=== PATIENT | female | born 1990 | race African-American/Black ===

== ENCOUNTER 2017-05-13 11:31 | Inpatient (IN) ==
[2017-05-13 12:24] LABS: Basophils % 0.4 % (0.0-0.8); Eosinophils # 0.1 10*3/uL (0.0-0.87); Hematocrit 31.4 VOL% (35.7-47.0); Hemoglobin 10.4 GM/DL (12.0-16.0); Immature Granulocytes % 0.5 %; Immature Granulocytes Absolute 0.04 #; Lymphocytes # 1.6 10*3/uL (1.4-4.0); Lymphocytes % 19.7 % (21.3-54.2); Mean Corpuscular HGB Conc 33.1 GM/DL (32-36); Mean Corpuscular Hemoglobin 28 PG (27-34); Mean Corpuscular Volume 85.3 FL (87-102); Mean Platelet Volume 11.1 FL (9.6-12.0); Monocytes # 0.6 10*3/uL (0.11-0.8); Monocytes % 7.8 % (1.7-12.7); Neutrophils # 5.7 10*3/uL (1.4-7.4); Neutrophils % 70.6 % (38.7-73.9); Platelet Count 246 T/CUMM (130-400); Red Blood Count 3.68 MC/CUMM (3.8-5.5); Red Cell Distribution Width 13.9 % (9.3-17.3); White Blood Count 8.1 T/CUMM (4-12)
[2017-05-13 12:52] LABS: Alanine Aminotransferase 18 U/L (13-56); Albumin 2.9 G/DL (3.4-5.0); Alkaline Phosphatase 185 U/L (45-117); Aspartate Amino Transferase 18 U/L (0-37); Bilirubin,Total < 0.39 MG/DL (0.2-1.0); Blood Urea Nitrogen 7 MG/DL (7-18); Calcium 8.9 MG/DL (8.5-10.1); Glucose 77 MG/DL (74-106); Osmolality,Calculated 269.8 MOS/KG (273-304); Potassium 3.4 MMOL/L (3.5-5.1); Sodium 137 MMOL/L (136-145); Total Protein 6.6 G/DL (6.4-8.3); Uric Acid 4.1 MG/DL (2.6-6.0)
--- NOTE | 2017-05-13 14:06 | Ultrasound Report ---
US OB biophys profile Indication: . Decreased movement. Biophysical profile ultrasound: Single fetus is vertex. Right lateral placenta without previa. MICHELLE 112 mm. heart rate 136 BPM. breathing, gross body movements and tone within normal limits. Impression: 06/25 biophysical profile score. PROCEDURE INTERPRETED AT [facility] DEPARTMENT OF RADIOLOGY Final Report Signed by: Adam Devine M.D.
[2017-05-13] MEDS ORDERED: DINOPROSTONE 10 MG VAG.INSERT VAG ONE ×2 (14:50→14:58)
[2017-05-13] MEDS ORDERED: ONDANSETRON 4 MG/2 ML VIAL IV PRN (14:50)
[2017-05-13] MEDS ORDERED: LACTATED RINGERS 1,000 ML IV SCH ×2 (15:00→18:00)
[2017-05-13] MEDS ORDERED: BUTORPHANOL 2 MG/ML VIAL IV PRN (15:49)
[2017-05-13] MEDS ORDERED: AMPICILLIN INJ 2,000 MG in SODIUM CHLORIDE 0.9% 100 ML IV SCH (17:00)
[2017-05-13] MEDS ORDERED: diphenhydrAMINE 50 MG/1 ML VIAL IV PRN ×2 (17:37)
[2017-05-13] MEDS ORDERED: LACTATED RINGERS 1,000 ML IV ONE (17:37)
[2017-05-13] MEDS ORDERED: LACTATED RINGERS 500 ML IV ONE (17:37)
[2017-05-13] MEDS ORDERED: LACTATED RINGERS 250 ML IV PRN (17:37)
[2017-05-13] MEDS ORDERED: fentaNYL 2 MCG/ROPIV 0.2% EPID 150 ML EPIDURAL SCH (17:37)
[2017-05-13] MEDS ORDERED: ePHEDrine 50 MG/ML AMP IV PRN (17:37)
[2017-05-13] MEDS ORDERED: hydrOXYzine HCL 25 MG/1 ML VIAL IM PRN (17:37)
[2017-05-13] MEDS ORDERED: PROMETHAZINE 25 MG/1 ML VIAL IM ONE (17:37)
[2017-05-13] MEDS ORDERED: ONDANSETRON 4 MG/2 ML VIAL IV ONE (17:37)
[2017-05-13] MEDS ORDERED: CITRIC ACID/SODIUM CITRATE 30 ML UDCUP ONE (17:49)
[2017-05-13] MEDS ORDERED: FAMOTIDINE 20 MG/2 ML VIAL IV ONE (17:49)
[2017-05-13] MEDS ORDERED: CITRIC ACID/SODIUM CITRATE 30 ML UDCUP PO ONE (17:49)
[2017-05-13] MEDS ORDERED: miSOPROStol 200 MCG TABLET ONE (18:54)
[2017-05-13] MEDS ORDERED: OXYTOCIN/LR 20 UNIT/1,000 ML BAG IV ONE ×2 (18:54→19:33)
[2017-05-13] MEDS ORDERED: LIDOCAINE 1% 50 ML VIAL ONE (18:54)
[2017-05-13] MEDS ORDERED: METHYLERGONOVINE 0.2 MG/1 ML AMP ONE (18:55)
[2017-05-13] MEDS ORDERED: CARBOPROST TROMETHAMINE 250 MCG/ML AMP IM ONE (18:55)
[2017-05-13] MEDS ORDERED: TERBUTALINE 1 MG/1 ML VIAL SUBCUT ONE ×2 (18:57)
[2017-05-13 19:34] LABS: Cord Arterial Blood HCO3 22.6 MMOL/L
[2017-05-13 19:36] LABS: Cord Venous Blood HCO3 21.8 MMOL/L; Cord Venous Blood PCO2 52.6 MMHG; Cord Venous Blood PO2 14.8 MMHG
[2017-05-13] MEDS ORDERED: IBUPROFEN 800 MG TABLET PO PRN ×2 (20:36→21:53)
[2017-05-13] MEDS ORDERED: LABETALOL 100 MG TABLET PO SCH (21:00)
[2017-05-13] MEDS ORDERED: METHYLDOPA 250 MG TABLET PO SCH (21:00)
--- NOTE | 2017-05-13 21:29 | OB/GYN History & Physical ---
History of Present Illness Chief complaint: Headache and abdominal pain History of present illness: Ms. Oliveira is a 26 year old female @10:30 am 05/13/2017 HPI: 26 y/o @36 1/7 weeks per 16 week u/s. C/O H/A, reports taking BP medication this morning. Patient also c/o lower abdominal pain. Patient reports good movement, denies vaginal bleeding, no leakage of fluid. Care: HC with Prisca ACEVEDO starting at 5 weeks x 19 visits. Past OB Hx.: 1.) 2005 of viable female 5lbs 4 oz no complications, 2.) 2006 of viable male 5lbs 4oz no complications 3.)2010 of viable female 4lbs 11oz no complications, 4.)2013 of viable male 6lbs no complications, 5. ) 2015 of viable female 6lbs 13 oz no complications. 6. ) current . Past Medical Hx. HTN, Hx. of GDM, HSV II Past surgical Hx. Colpo 2012, Cryo 2012 Family Hx.: Mom- HTN, DM Father HTN, stroke Social Hx. Single AAF, FOB not involved, no tobacco, no alcohol, no illicit drug use Meds: PNVs, labetalol 200mg 1 po BID, Aldomet 250mg 1 po BID Allergies: NKDA labs: GBS positive 05/09/2017 PE: BP 160/98 P85 R20 T98.4 in office CVS- RRR, no murmur, Lungs CTA bilaterally Abdomen- Fundal height appropriate for dates abdomen nonrigid but extremely tender Extremities- + pedal pulses, negative merritt's sign bilaterally SVE 1.5cm/20-30%/-3 station [id number]'s Home Medications Medication Instructions Recorded Confirmed Type Labetalol Tab [Trandate Tab] 200 mg PO BID 04/25/16 05/13/17 History Methyldopa [Aldomet] 250 mg PO BID 04/25/16 05/13/17 History Docosahexanoic Acid [ Dha] 200 mg PO QAM 04/07/17 05/13/17 History Butalbital/Acet/Caff 50-325-40 1 tablet PO Q4H PRN 04/10/17 05/13/17 History [Fioricet 50-325-40 mg Tablet] Allergies Allergy/AdvReac Type Severity Reaction Status Date / Time No Known Allergies Allergy Verified 04/22/17 23:51 12 point system: reviewed and no additional remarkable complaints except as stated Medical,Surgical,& Family Hx - Medical History Cardio: History of: Hypertension Neurology: No history of: Vertigo Endocrine: History of: Diabetes Mellitus (NIDDM) Musculoskeletal: No history of: Amputation Reproductive: History of: Sexually Transmitted Disorders (HSV II) No history of: Ectopic , Complication - Surgical History Reproductive Surgeries: Patient denies;: Section, Gynecologic Surgery (Colposcopy 2012, Cryotherapy 2012) - Family History Family History: Reports;: Family Diabetes (AUNT), Family Hypertension (MOTHER) Denies;: Family Anesthesia Reaction, Family Cancer, Family Heart Disease, Family Psychiatric Problems, Family Stroke - Social History Smoking Status: Never smoker Frequency of Alcohol Use: None Type of Drug Use: None Marital Status: Single Lives With:: Children Functional capacity: independent ambulation 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 - Constitutional Vitals: Vital Signs Temp Pulse Resp BP Pulse Ox 05/13/17 21:15 97.1 F L 95 H 19 164/94 97 05/13/17 20:45 97 F L 89 19 160/84 98 05/13/17 20:15 97 F L 90 18 162/96 98 05/13/17 19:31 97.2 F L 100 H 19 148/89 General appearance: normal weight - Head Head exam: Present: normal inspection - Eye Eye exam: Present: EOMI Pupils: Present: TUSHAR - ENT ENT exam: Present: normal exam - Neck Neck exam: Present: normal inspection - Respiratory Respiratory exam: Present: clear to auscultation bilaterally - Breast Menstruation: amenorrhea (Secondary due to ) - Cardiovascular Cardiovascular exam: Present: regular rate and rhythm Peripheral pulses: 2+: posterior tibialis (L), posterior tibialis (R), dorsalis pedis (L), dorsalis pedis (R) - GI/Abdominal GI/Abdominal exam: Present: distended (Due to gravid uterus) - Extremities Exam Extremities exam: Present: normal inspection - Back Exam Back exam: Present: normal inspection - Neurological Exam Neurological exam: Present: alert, oriented X3 - Psychiatric Psychiatric exam: Present: normal affect, normal mood - Skin Skin exam: Present: normal color, warm Assessment and Plan (1) Pre-eclampsia superimposed on chronic hypertension Status: Acute Assessment and plan: Admit for cervical ripening with cervidil Later induction of labor with pitocin Continue oral HTN meds Continuous toco Pain management as desired Anticipate Current Visit: Yes Results - Labs CBC & BMP: 05/13/17 12:05 05/13/17 12:05
--- NOTE | 2017-05-13 21:41 | OB/GYN Progress Note ---
Assessment and Plan (1) Pre-eclampsia superimposed on chronic hypertension Status: Acute Assessment and plan: Continue oral HTN meds Current Visit: Yes (2) Vaginal delivery Status: Acute Assessment and plan: Routine PP management Current Visit: Yes SURVEY ENGINEER - PN: Subj Interval history: 05/13/2017 @ 1909 S- Patient denies feeling uterine contractions O- FHTs category I tracing, SVE 10/100/+1, bulging bag noted, AROM using amnihook, clear fluid noted. began pushing, maternal pushing efforts sufficient, head delivered OP, nuchal x 1 noted and easily reduced, large blood clots noted after the delivery of the head, shoulders and body delivered without difficulty, nose and mouth suctioned, vigorous cry noted, infant placed on mom's abdomen and dried and stimulated. Cord clamped and cut, placed on radiant warmer under the supervision of nursery staff, Placenta expelled intact @ 1910, 3 vessel cord, abruption suspected due to appearance of placenta and passage of clots prior to and during delivery. Fundus massaged until firm 250ml EBL. Vaginal mucosa intact. of viable male weight 5lbs 4oz (2385gms) apgars 8/9 Exam SURVEY ENGINEER - Constitutional Vitals: Vital Signs Temp Pulse Resp BP Pulse Ox 05/13/17 21:15 97.1 F L 95 H 19 164/94 97 05/13/17 20:45 97 F L 89 19 160/84 98 05/13/17 20:15 97 F L 90 18 162/96 98 05/13/17 19:31 97.2 F L 100 H 19 148/89 Results - Labs CBC & BMP: 05/13/17 12:05 05/13/17 12:05
[2017-05-13] MEDS ORDERED: MAGNESIUM HYDROXIDE SUSP 30 ML UDCUP PO PRN (21:53)
[2017-05-13] MEDS ORDERED: BISACODYL 10 MG SUPP RECTAL PRN (21:53)
[2017-05-13] MEDS ORDERED: ACETAMINOPHEN 325 MG TABLET PO PRN (21:53)
[2017-05-13] MEDS ORDERED: BUTALBITAL/ACETAMIN/CAFFEINE 50-325-40 MG TABLET PO PRN (22:27)
[2017-05-14 06:18] LABS: Basophils % 0.2 % (0.0-0.8); Eosinophils # 0.1 10*3/uL (0.0-0.87); Eosinophils % 0.7 % (0.00-10.9); Hemoglobin 9.8 GM/DL (12.0-16.0); Immature Granulocytes % 0.6 %; Immature Granulocytes Absolute 0.07 #; Lymphocytes # 2.2 10*3/uL (1.4-4.0); Lymphocytes % 18.1 % (21.3-54.2); Mean Corpuscular HGB Conc 32.7 GM/DL (32-36); Mean Corpuscular Hemoglobin 28 PG (27-34); Mean Corpuscular Volume 84.5 FL (87-102); Mean Platelet Volume 11.5 FL (9.6-12.0); Monocytes % 7.9 % (1.7-12.7); Neutrophils # 8.7 10*3/uL (1.4-7.4); Neutrophils % 72.5 % (38.7-73.9); Platelet Count 234 T/CUMM (130-400); Red Blood Count 3.55 MC/CUMM (3.8-5.5); Red Cell Distribution Width 13.9 % (9.3-17.3); White Blood Count 12.1 T/CUMM (4-12)
[2017-05-14] MEDS ORDERED: METHYLDOPA 250 MG TABLET ONE (07:37)
[2017-05-14] MEDS ORDERED: LABETALOL 100 MG TABLET ONE (07:37)
[2017-05-14] MEDS: METHYLDOPA 250 MG TABLET PO SCH ×2 (07:40→20:31)
[2017-05-14] MEDS: DOCUSATE SODIUM 100 MG CAPSULE PO SCH ×2 (07:40→20:31)
[2017-05-14] MEDS: MULTIVITAMIN (PRENATAL) TABLET PO SCH (07:40)
[2017-05-14] MEDS: LABETALOL 100 MG TABLET PO SCH ×2 (07:40→20:31)
--- NOTE | 2017-05-14 08:24 | OB/GYN Progress Note ---
Assessment and Plan (1) Pre-eclampsia superimposed on chronic hypertension Status: Acute Assessment and plan: Continue oral HTN meds Current Visit: Yes (2) Vaginal delivery Status: Acute Assessment and plan: Routine PP management Current Visit: Yes (3) care and examination Status: Acute Assessment and plan: Routine PP management Possible discharge in am Current Visit: Yes SPORTS COMMENTATOR - PN: Subj Interval history: 05/14/2017 @ 0810am S- Patient rec'd laying in bed with HOB elevated. Patient reports normal voiding without difficulty. Patient denies stool since delivery. Patient continues to express desire for tubal ligation. O- CVS-RRR, no murmur, Lungs-CTA bilaterally Breast soft and nipples intact bilaterally Fundus firm 3 fbs below umbilicus Lochia- moderate amount of dark red rubra Extremities- + pedal pulses, no edema, negative merritt's sign H/H 9.07/17 Exam SPORTS COMMENTATOR - Constitutional Vitals: Vital Signs Temp Pulse Resp BP Pulse Ox 05/14/17 07:27 97.5 F L 86 20 145/75 98 05/14/17 04:00 97.1 F L 76 18 144/86 97 05/13/17 23:25 98.2 F 86 20 154/87 98 05/13/17 21:15 97.1 F L 95 H 19 164/94 97 05/13/17 20:45 97 F L 89 19 160/84 98 05/13/17 20:15 97 F L 90 18 162/96 98 05/13/17 19:31 97.2 F L 100 H 19 148/89 Results - Labs CBC & BMP: 05/14/17 05:57 05/13/17 12:05
--- NOTE | 2017-05-14 08:26 | OB/GYN Progress Note ---
Assessment and Plan (1) Encounter for sterilization Status: Acute Assessment and plan: Plan PPTL today Current Visit: No NFL PLAYER - PN: Subj Interval history: Reviewed R/B/A to permanent sterilization via PPTL. Pt verbalized understanding of said information and is willing to proceed. Tubal consent signed in the office. Exam NFL PLAYER - Constitutional Vitals: Vital Signs Temp Pulse Resp BP Pulse Ox 05/14/17 07:27 97.5 F L 86 20 145/75 98 05/14/17 04:00 97.1 F L 76 18 144/86 97 05/13/17 23:25 98.2 F 86 20 154/87 98 05/13/17 21:15 97.1 F L 95 H 19 164/94 97 05/13/17 20:45 97 F L 89 19 160/84 98 05/13/17 20:15 97 F L 90 18 162/96 98 05/13/17 19:31 97.2 F L 100 H 19 148/89 General appearance: no acute distress - Head Head exam: Present: normal inspection - Eye Eye exam: Present: EOMI Pupils: Present: TUSHAR - GI/Abdominal GI/Abdominal exam: Present: soft. Absent: tenderness Results - Labs CBC & BMP: 05/14/17 05:57 05/13/17 12:05
[2017-05-14] MEDS ORDERED: LACTATED RINGERS 1,000 ML IV SCH (09:30)
[2017-05-14] MEDS ORDERED: FAMOTIDINE 20 MG TABLET PO ONE (09:30)
[2017-05-14] MEDS ORDERED: METOCLOPRAMIDE 10 MG TABLET PO ONE (09:31)
[2017-05-14] MEDS ORDERED: CITRIC ACID/SODIUM CITRATE 30 ML UDCUP PO ONE (09:31)
[2017-05-14] MEDS ORDERED: ONDANSETRON 4 MG/2 ML VIAL ONE ×2 (11:00→14:25)
[2017-05-14] MEDS ORDERED: PROPOFOL 200 MG/20 ML VIAL IV ONE (11:00)
[2017-05-14] MEDS ORDERED: SUCCINYLCHOLINE 200 MG/10 ML VIAL ONE (11:00)
[2017-05-14] MEDS ORDERED: LIDOCAINE 1% 5 ML VIAL ONE (11:00)
[2017-05-14] MEDS ORDERED: ROCURONIUM 100 MG/10 ML VIAL IV ONE (11:00)
--- NOTE | 2017-05-14 14:00 | Anesthesia Post-Op ---
Anesthesia Post OP - Post Ansesthetic Evaluation Patient seen in post op: Yes Resp: within normal limits CV: within normal limits Mental: within normal limits Temp: within normal limits [id number]: within normal limits Nausea and Vomiting: within normal limits Pain: within normal limits
[2017-05-14] MEDS ORDERED: fentaNYL 100 MCG/2 ML VIAL ONE (14:03)
[2017-05-14] MEDS ORDERED: SEVOFLURANE 1 UNIT/15 MINUTE INH ONE (14:03)
[2017-05-14] MEDS ORDERED: MIDAZOLAM 2 MG/2 ML VIAL ONE (14:03)
[2017-05-14] MEDS ORDERED: HYDROmorphone 2 MG/1 ML VIAL IV PRN (14:21)
[2017-05-14] MEDS ORDERED: ONDANSETRON 4 MG/2 ML VIAL IV PRN (14:21)
[2017-05-14] MEDS ORDERED: HYDROmorphone 2 MG/1 ML VIAL ONE (14:25)
--- NOTE | 2017-05-14 14:58 | Operative Note ---
Date of procedure: 05/14/17 Pre-op diagnosis: Undesired fertility Post-op diagnosis: same Procedure: TUBAL LIGATION Pt was taken to the OR. Positioned on the table. Put to sleep with GETA. Prepped and draped in standard fashion. 10 cc of plain 1%lidocaine injected in the surgical site and allowed to set up block for 5 mintues. Ashlie clamps horizontally positioned 3 cm apart just inferior to the umbilicus. Instruments used to elevate the skin and 3 cm incision made. Sasha clamp used to open the tissue and visualize the fascia. Ashlie clamps repositioned in a vertical fashion on either side of the wound for better exposure. Fascia visualized and grasped with Sasha clamps x 2. Fascia opened with Meadows scissors. Incision extended bluntly by spreading Sasha clamp. Right side of the fascia grasped with an Ashlie and an 0 vicryl stich placed in the corner and tied down. Needle passenger coach driver put to the side. Pt placed in trendelenberg position and tiltled to the right in order to better visualize left tube. 2 small moist laps placed in the cavity superiorly to move the bowel. Left tube seen and grasped with Babbcock clamp taking care to note the fimbriatted end of the tube. One Babbcock removed and stitch taken thru the mesosalpinx. Tube tied and knuckle created in standard fashion with 2.0 plain suture. Second free tiee of the same placed around the segment of tube. Knuckle portion of tube cut off and segment sent to path. [place] burned with Bovie. Additional segment of tube grasped with Sasha clamp and burned. Table tilted to the left and similar procedure done with the right tube. Visualized, to include fimbria. Same suture x 2, cut, burn and Sasha procedure. Hemostasis noted. Sponges removed. Fascia closed with the vicryl stitch that was set to the side. Skin closed with 4.0 monocryl. An additional 10 cc of plain lidocaine injected into the incision site. Sponge, lap and needle counts correct x 2 and patient taken to recovery in stable condition. Anesthesia: GETA Surgeon / Physician: Gretel Huber Ship Boat Or Barge Mate: Kim Paula Estimated blood loss: minimal Specimens: other (Segment of both fallopian tubes) Condition: stable Disposition: PACU Results - Labs CBC & BMP: 05/14/17 05:57 05/13/17 12:05 Discharge Plan - Discharge Medications No Action Methyldopa [Aldomet] 250 mg PO BID Labetalol Tab [Trandate Tab] 200 mg PO BID Docosahexanoic Acid [ Dha] 200 mg PO QAM Butalbital/Acet/Caff 50-325-40 [Fioricet 50-325-40 mg Tablet] 1 tablet PO Q4H PRN PRN Reason: Headache - Follow Up or Referral - Forms/Instructions
[2017-05-14] MEDS: IBUPROFEN 800 MG TABLET PO SCH (16:40)
[2017-05-15 07:27] VITALS: BP 157/80
--- NOTE | 2017-05-15 08:08 | Discharge Summary ---
Hospital Course - Hospital Course Hospital Course: 05/15/2017 @ 0800am S- Patient rec'd sitting upright in bed on the phone. Patient c/o some pain r/t tubal ligation. Patient reports voiding without difficulty and reports flatulence. Patient states that she continues to breast feed . O- CVS-RRR, no murmur, Lungs, CTA bilaterally Breast soft and nipples intact bilaterally Fundus- firm 2-3 fbs below umbilicus Abdominal incision from tubal done 05/14/2017 with edges well approximated. Lochia- small amount of dark red rubra Extremities- + pedal pulses, no edema, negative merritt's sign bilaterally H/H 9.07/17 Diagnosis - Discharge Diagnosis (1) Pre-eclampsia superimposed on chronic hypertension Status: Resolved (2) Vaginal delivery Status: Resolved (3) care and examination Status: Resolved Specialty Discharge - Follow Up or Referrals Discharge Plan - Discharge Data Disposition: Disch To Home/Self Care Condition at Discharge: Stable Discharge Diet: regular diet Activity: resume usual activities as tolerated Hygiene: may shower Weight Bearing at Discharge: full weight bearing Driving: not until seen by doctor Contact your physician if you experience:: fever over 101, Difficulty voiding, Shortness of breath, Bleeding, pain uncontrolled by pain medications - Discharge Medications New Ibuprofen Tab [Motrin Tab] 800 mg PO Q8H #90 tablet HYDROcodone/ACETAMIN 5-325 [[place] 5-325] 1 tablet PO Q4H PRN #30 tablet PRN Reason: Pain Moderate (4-7) NIFEdipine XL TAB [Procardia Xl] 30 mg PO DAILY #30 tablet Continue Docosahexanoic Acid [ Dha] 200 mg PO QAM Butalbital/Acet/Caff 50-325-40 [Fioricet 50-325-40 mg Tablet] 1 tablet PO Q4H PRN PRN Reason: Headache Labetalol Tab [Trandate Tab] 200 mg PO BID #60 Discontinued Methyldopa [Aldomet] 250 mg PO BID - Follow Up or Referral Follow Up: Gretel Huber MD [Physician] - (F/U at [facility] [place] in 2 weeks) - Forms/Instructions Instructions: Laparoscopic Tubal Ligation (DC), Vaginal Delivery (DC), Bleeding (DC) Exam - Constitutional Vitals: Period Temp Pulse Resp BP Sys/Clay Pulse Ox Last 24 Hr 97 F-98.7 F 73-90 16-20 127-163/72-103 94-100 DS: Provider Date of admission: 05/13/17 14:50 Primary care physician: Aneglic Bae Attending physician on admission: Gretel Huber MD Discharging clinician: Angelic Bae
[2017-05-15] MEDS: MULTIVITAMIN (PRENATAL) TABLET PO SCH (08:33)
[2017-05-15] MEDS: DOCUSATE SODIUM 100 MG CAPSULE PO SCH (08:33)
[2017-05-15] MEDS: METHYLDOPA 250 MG TABLET PO SCH (08:34)
[2017-05-15] MEDS: IBUPROFEN 800 MG TABLET PO SCH ×2 (08:35)
[2017-05-15] MEDS: LABETALOL 100 MG TABLET PO SCH (08:37)
--- NOTE | 2017-05-15 13:29 | Pathology Report from [facility] ---
[facility] [place] ACCESSION # : [id number] PATIENT NAME : Heavenly Oliveira ORDERING DR : Gretel Huber MD CLINICAL HX: Desires sterilization POST-OP DX: Same SPECIMEN INFO: #1 Right fallopian tube #2 Left fallopian tube GROSS DESCRIPTION: #1 R FALLOPIAN TUBE consists of a 1.5 x 0.8 cm pink-long segment of unfimbriated fallopian tube. Billiard Table Mechanic section submitted in cassette #1.#2 L FALLOPIAN TUBE consists of a 2.9 x 0.7 cm pink-long segment of unfimbriated fallopian tube. Billiard Table Mechanic section submitted in cassette #2. DIAGNOSIS FOR HEAVENLY LOIVEIRA: #1 RIGHT FALLOPIAN TUBE & #2 LEFT FALLOPIN TUBE: Complete cross section of fallopian tubes. COLLECTED DATE: 05/14/2017 [facility] [place] REPORT DATE: 05/15/2017 ELECTRONICALLY SIGNED BY: Ruthie Link III, M.D. 05/15/2017 - 10:02:35 [facility]ENTERWolf
--- NOTE | 2017-05-16 12:24 | Pathology Report from [facility] ---
[facility] ACCESSION # : [id number] PATIENT NAME : Heavenly Oliveira ORDERING DR : Gretel Huber MD CLINICAL HX: IUP @ 36 weeks - Chronic hypertension POST-OP DX: Same SPECIMEN INFO: Placenta GROSS DESCRIPTION: Received fresh labeled with the patients name and consists of a 451 gram placenta measuring 18.2 x 16.3 x 2.2 cm. The membranes are pink-long and opaque with clotted blood present. The umbilical cord is centrally inserted, contains three vessels and measures 19.2 cm. The surface is [id number]. The maternal surface is hemorrhagic with mildly disrupted cotyledons and marked areas of peripheral adherent clotted blood present. Several areas of calcifications are noted. No gross abnormalities on sectioning. Sections submitted: A membranes and cord, B and maternal surfaces. DIAGNOSIS FOR HEAVENLY OLIVEIRA: PLACENTA, MEMBRANES, UMBILICAL CORD: Focal placental infarction with dystrophic calcification, mild intervillous blood, subchorionic blood clot. Tri-vessel umbilical cord. Membranes with focal chronic inflammation and attached blood. COLLECTED DATE: 05/15/2017 [facility] REPORT DATE: 05/16/2017 ELECTRONICALLY SIGNED BY: Irais Rivera M.D. 05/16/2017 - 9:53:19 [facility]Wolf
== END 2017-05-15 11:20 | disposition home or self-care (01) | DRG 541 ==
LOC: N.LDOUT 11:31 → N.LD 11:32 → N.OB 20:15
PROVIDERS: ADMIT Obstetrics & Gynecology; ATTEND Nurse Practitioner